=== PATIENT | male | born 1990 | race Caucasian/White ===

== ENCOUNTER 2021-01-07 08:18 | Outpatient (CLI) | payer OTHER, SELFPAY | END 2021-01-07 08:19 | disposition home or self-care (01) | LOC: ANHCOVIDVC 08:18 | DX: Z23 Encounter for immunization (principal) | CPT/HCPCS: 0001A; 91300 ==

== ENCOUNTER 2021-01-28 08:21 | Outpatient (CLI) | payer OTHER, SELFPAY | END 2021-01-28 08:22 | disposition home or self-care (01) | DX: Z23 Encounter for immunization (principal) | CPT/HCPCS: 0002A; 91300 ==